=== PATIENT | female | born 1985 | race Caucasian/White ===

== ENCOUNTER 2017-07-18 18:55 | Emergency (ER) | payer OTHER ==
[2017-07-18 18:56] VITALS: BMI 21.4
[2017-07-18 19:01] VITALS: BP 118/76; PULSE 98; RESP 20; TEMP 98.3; O2SAT 98
[2017-07-18] MEDS ORDERED: Tetracaine 0.5% Ophth 2 ML BOTTLE OU ONE (19:12)
[2017-07-18] MEDS ORDERED: Fluorescein 1 mg Ophthalmic Strip OS ONE (19:12)
[2017-07-18] MEDS ORDERED: Fluorescein 1 mg Ophthalmic Strip ONE (19:34)
[2017-07-18] MEDS ORDERED: Tetracaine 0.5% Ophth (OR ONLY) ONE (19:34)
[2017-07-18] MEDS ORDERED: Polymyxin/Trimethoprim Ophth Soln OS STA (19:39)
--- NOTE | 2017-07-18 19:41 | C.PDOC ---
History Of Present Illness 32 year old female presents to the ER with a complaint of left eye pain that began today after she was carrying her son who poked her in the left eye. Patient is currently complaining of pain with blinking, foreign body sensation, and tearing. Denies change in vision. Time Seen by Provider: 07/18/17 19:09 Chief Complaint (Nursing): Eye Problem History Per: Patient History/Exam Limitations: no limitations Onset/Duration Of Symptoms: Hrs Current Symptoms Are (Timing): Still Present Injury To Eye?: Yes Wears Contact Lens?: No Associated Symptoms: Pain (w/ blinking), FB Sensation, Other (Tearing) Recent travel outside of the [place]: No Past Medical History Reviewed: Historical Data, Nursing Documentation, Vital Signs Vital Signs: Last Vital Signs Temp 98.3 F 07/18/17 19:00 Pulse 98 H 07/18/17 19:00 Resp 20 07/18/17 19:00 BP 118/76 07/18/17 19:00 Pulse Ox 98 07/18/17 22:42 Family History: States: Unknown Family Hx - Social History Hx Tobacco Use: No Hx Alcohol Use: No Hx Substance Use: No - Immunization History Hx Tetanus Toxoid Vaccination: No Hx Influenza Vaccination: No Hx Pneumococcal Vaccination: No Review Of Systems Eyes: Positive for: Pain, Other (Foreign body sensation, tearing). Negative for : Vision Change Physical Exam - Physical Exam Appears: Non-toxic Skin: Normal Color, Warm, Dry Head: Atraumatic, Normacephalic Eye(s): bilateral: PERRL, EOMI, right: Normal Inspection, left: Other (Diffuse conjunctival injection, photophobia, fluorescein uptake at 2'o clock.) Nose: Normal Oral Mucosa: Moist Neck: Normal ROM Chest: Symmetrical Neurological/Psych: Oriented x3, Normal Speech ED Course And Treatment O2 Sat by Pulse Oximetry: 98 (Room air) Pulse Ox Interpretation: Normal Medical Decision Making Medical Decision Making: Patient with positive fluorescein uptake, she is resting comfortably in no distress, will discharge home on polytrim and instructions to follow up with rubber grinder. Disposition Counseled Patient/Family Regarding: Diagnosis, Need For Followup - Disposition Referrals: Liang Arcos MD [Staff Provider] - Disposition: HOME/ ROUTINE Disposition Time: 19:40 Condition: GOOD Additional Instructions: apply 1-2 drops in eye 2 times a day for one week follow up with systems software specialist maria elenar 1-2 gotas en [place] 2 veces al da jyoti sam semana seguimiento con un especialista en [place] Prescriptions: Polymyxin/Trimethoprim Sulfate [Polytrim Ophth Soln] 1 drop OS BID 7 Days #1 bottle Instructions: Corneal Abrasion (DC) Forms: [employer] (Serbian) Print Language: ANDORRAN - POA Present On Arrival: None - Clinical Impression Clinical Impression: Corneal abrasion - 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 - Scribe Statement The provider has reviewed the documentation as recorded by the Scribe Melvin Jarquin All medical record entries made by the Scribe were at my direction and personally dictated by me. I have reviewed the chart and agree that the record accurately reflects my personal performance of the history, physical exam, medical decision making, and the department course for this patient. I have also personally directed, reviewed, and agree with the discharge instructions and disposition.
== END 2017-07-18 19:57 | disposition home or self-care (01) ==
LOC: C.ER 18:55
DX: S05.02XA Injury of conjunctiva and corneal abrasion without foreign body, left eye, initial encounter (principal); W50.0XXA Accidental hit or strike by another person, initial encounter

== ENCOUNTER 2018-04-07 19:03 | Emergency (ER) | payer MEDICAID, OTHER ==
[2018-04-07 19:04] VITALS: BMI 21.4
[2018-04-07 19:15] VITALS: O2SAT 99
--- NOTE | 2018-04-07 19:36 | C.PDOC ---
History Of Present Illness 32 year old female, with no significant past medical history, presents to the ED for evaluation of left foot and ankle pain which began 5 days ago. Patient states she was trying to close a curtain by leaning over her bed, when she accidentally fell and twisted her left ankle. She has been able to ambulate, but has persistent pain to her dorsal left foot and lateral left ankle. She also reports some bruising to her left lateral foot. She has not taken anything for pain. Patient denies head strike, LOC, open wounds, extremity numbness/weakness, parenthesia, dizziness, vision change, headache, neck pain, or any other injuries at this time. Time Seen by Provider: 04/07/18 19:33 Chief Complaint (Nursing): Lower Extremity Problem/Injury History Per: Patient History/Exam Limitations: no limitations Onset/Duration Of Symptoms: Days (5) Current Symptoms Are (Timing): Still Present Additional History Per: Patient - Ankle/Foot Description Of Injury: Twisted (left ) Past Medical History Reviewed: Historical Data, Nursing Documentation, Vital Signs Vital Signs: Last Vital Signs Temp 98.4 F 04/07/18 19:12 Pulse 95 H 04/07/18 19:12 Resp 18 04/07/18 19:12 BP 120/76 04/07/18 19:12 Pulse Ox 99 04/07/18 19:12 - Medical History PMH: No Chronic Diseases Surgical History: No Surg Hx Family History: States: Unknown Family Hx - Social History Hx Tobacco Use: No Hx Alcohol Use: No Hx Substance Use: No - Immunization History Hx Tetanus Toxoid Vaccination: No Hx Influenza Vaccination: No Hx Pneumococcal Vaccination: No Review Of Systems Constitutional: Negative for: Fever, Chills Eyes: Negative for: Vision Change ENT: Negative for: Nose Congestion, Throat Pain Cardiovascular: Negative for: Chest Pain, Palpitations Respiratory: Negative for: Cough, Shortness of Breath Gastrointestinal: Negative for: Nausea, Vomiting, Abdominal Pain Genitourinary: Negative for: Dysuria, Frequency Musculoskeletal: Positive for: Other (left foot and ankle pain ). Negative for: Neck Pain Skin: Positive for: Bruising. Negative for: Rash Neurological: Negative for: Weakness, Numbness, Headache, Dizziness, Other (head strike, LOC ) Physical Exam - Physical Exam Appears: Well, Non-toxic, No Acute Distress Skin: Normal Color, Warm, Dry Head: Atraumatic, Normacephalic Eye(s): bilateral: Normal Inspection, PERRL, EOMI Nose: Normal Throat: Normal Neck: Normal, Normal ROM, Supple Cardiovascular: Rhythm Regular Respiratory: Normal Breath Sounds Gastrointestinal/Abdominal: Soft, No Tenderness Back: Normal Inspection, No CVA Tenderness, No Muscle Spasm, No Paraspinal Tenderness Extremity: No Normal ROM (decreased in left foot secondary to pain ), Capillary Refill (less than 2 seconds ), Swelling (mild, to dorsal left foot ), Other (t enderness over the left dorsal foot and the left lateral ankle with some brusing to the lateral heel ) Extremity: Left: Painful To Bear Weight, Bilateral: Atraumatic, No Pedal Edema, Normal ROM Pulses: Left Dorsalis Pedis: Normal, Right Dorsalis Pedis: Normal Neurological/Psych: Oriented x3, Normal Speech, Normal Cognition, Normal Motor, Normal Sensation Gait: Steady ED Course And Treatment O2 Sat by Pulse Oximetry: 99 (on RA ) Pulse Ox Interpretation: Normal Medical Decision Making Medical Decision Making: Plan: * left ankle XR * left foot XR * Tylenol PO * reassess and disposition 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 Prelim read is negative for fracture or dislocation as read by me. Pending official AM read. Will splint and give crutches secondary to complaints of persistent pain and swelling. Splint was applied by me, posterior short leg, neurovascular exam remains unchanged after splint and patient was given crutches. Crutch teaching performed by PT. Patient able to demonstrate safe and appropriate crutch use prior to discharge. On reassessment, patient is resting comfortably, showing no signs of distress and is stable for discharge. Patient is advised to follow up with her PMD and podiatry within 1-2 days for further evaluation. Diagnostic testing results and plan of care discussed with patient. Strict instructions given regarding prescription use, importance of followup, and signs/symptoms to return to ER including worsening pain or any other new/worsening symptoms. Pt verbalized understanding of discussion. Patient is A&Ox3, ambulating with steady gait, with vital signs stable for discharge. Disposition - Disposition Referrals: [facility] [Outside] Disposition: HOME/ ROUTINE Disposition Time: 20:45 Condition: GOOD Additional Instructions: ibuprofeno / tylenol para el dolor [place], no actividad vigorosa. Reposo, hielo, comprimir el pie lesionado. Mantener la frula hasta el seguimiento con el mdico de pie. Usa muletas para caminar Seguimiento con podologa (mdico de pies) maana. Regrese a la katya de emergencias para cualquier sntoma nuevo / que empeora. 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 - Scribe Statement The provider has reviewed the documentation as recorded by the Scribe (Lily Leo) All medical record entries made by the Scribe were at my direction and personally dictated by me. I have reviewed the chart and agree that the record accurately reflects my personal performance of the history, physical exam, medical decision making, and the department course for this patient. I have also personally directed, reviewed, and agree with the discharge instructions and disposition.
[2018-04-07 20:58] VITALS: BP 113/66; PULSE 88; RESP 20; TEMP 98.3
--- NOTE | 2018-04-08 10:50 | RAD ---
PROCEDURE: Left Foot Radiographs. HISTORY: ankle injury, pain to dorsal foot COMPARISON: None available. FINDINGS: BONES: No acute displaced fracture. JOINTS: No dislocation. SOFT TISSUES: Soft tissue swelling. No evidence of radiopaque foreign body. OTHER FINDINGS: None. IMPRESSION: Soft tissue swelling. No acute displaced fracture or dislocation identified. If symptoms persist, or if there is continued clinical concern, x-ray follow-up in 7-10 days should be considered.
--- NOTE | 2018-04-08 10:52 | RAD ---
PROCEDURE: Left Ankle Radiographs. HISTORY: ankle injury, pain to medial and lateral malleolus COMPARISON: None available. FINDINGS: BONES: No acute displaced fracture. JOINTS: No dislocation. Ankle mortise maintained. Talar dome intact SOFT TISSUES: Soft tissue swelling. No evidence of radiopaque foreign body. OTHER FINDINGS: None. IMPRESSION: Soft tissue swelling. No acute displaced fracture or dislocation identified. If symptoms persist or if there is clinical concern, x-ray follow-up in 7-10 days should be considered.
== END 2018-04-07 21:10 | disposition home or self-care (01) ==
LOC: C.ER 19:03 → SUPCPDRO 19:03 → C.ER 21:10
DX: S99.912A Unspecified injury of left ankle, initial encounter (principal); S99.922A Unspecified injury of left foot, initial encounter; W01.0XXA Fall on same level from slipping, tripping and stumbling without subsequent striking against object, initial encounter

== ENCOUNTER 2018-05-07 17:14 | Emergency (ER) | payer OTHER, MEDICAID | END 2018-05-07 18:30 | disposition home or self-care (01) | LOC: C.ER 17:14 ==